=== PATIENT | male | born 1990 | race Caucasian/White ===

== ENCOUNTER 2020-06-29 23:39 | Emergency (ER) | payer MEDICAID ==
[~2020-06-29] VITALS: Ht 175.3 cm; Wt 86.4 kg
[2020-06-30] MEDS ORDERED: OLANZapine 5 MG TABLET PO ONE (00:45)
[2020-06-30 00:57] VITALS: BP 0/0
== END 2020-06-30 01:13 | disposition home or self-care (01) ==
LOC: EMS 23:41
DX: N50.812 Left testicular pain (principal); F15.10 Other stimulant abuse, uncomplicated; F17.210 Nicotine dependence, cigarettes, uncomplicated; F12.90 Cannabis use, unspecified, uncomplicated; F19.90 Other psychoactive substance use, unspecified, uncomplicated
CPT/HCPCS: 99283

== ENCOUNTER 2022-01-14 08:34 | Emergency (ER) | payer MEDICAID ==
[~2022-01-14] VITALS: Ht 175.3 cm; Wt 86.4 kg
[2022-01-14 08:40] VITALS: BP 114/73
== END 2022-01-14 10:48 | disposition left against medical advice (07) ==
LOC: EMS 08:41
DX: F15.10 Other stimulant abuse, uncomplicated (principal); F20.9 Schizophrenia, unspecified; F41.9 Anxiety disorder, unspecified; F12.90 Cannabis use, unspecified, uncomplicated; F10.20 Alcohol dependence, uncomplicated; F17.210 Nicotine dependence, cigarettes, uncomplicated
CPT/HCPCS: 99283